=== PATIENT | female | born 1950 | race Caucasian/White ===

== ENCOUNTER 2020-01-12 08:13 | Emergency (ER) | payer BC, MEDICARE ==
[~2020-01-12] VITALS: Ht 170.2 cm; Wt 59.0 kg
[~2020-01-12 08:13] MED LIST: BENADRYL25 MG PO; BONIVA3 MG/3 ML IV; FLOVENT HFA12 G1 INH; PREMARIN0.625 MG PO; VENTOLIN HFA18 GM INH
--- OUTSIDE RECORDS SUMMARY | 2020-01-12 08:16 | XMS ---
PreManage Notification: BEATRICE DORAN Security Skate Hop Events No recent Security Events currently on file CRITERIA MET - [facility] - 2 Visits in 30 Days CARE PROVIDERS There are no care providers on record at this time. [facility] has no Care Guidelines for this patient. [facility] (12 MO.) [facility] T[facility] NOTE: Visits indicate total known visits. ED/C VISIT TRACKING (12 MO.) 01/12/2020 08:[address] [facility] [place] TYPE: Emergency COMPLAINT: - SOB, L SHOULDER PAIN ACROSS CHEST 01/11/2020 12:17 [facility] [place] TYPE: Emergency COMPLAINT: - SOB INPATIENT VISIT TRACKING (12 MO.) No inpatient visits to display in this time frame [email or web address]
--- NOTE | 2020-01-12 20:10 | EKG ---
[facility] [address] [facility] [place] [address] Signed Atrial fibrillation with rapid ventricular response Nonspecific ST and T wave abnormality Abnormal ECG When compared with ECG of 11-JAN-2020 14:29, Atrial fibrillation has replaced Sinus rhythm Vent. rate has increased BY [address] no longer elevated in Lateral leads Nonspecific T wave abnormality now evident in Lateral leads Confirmed by VIKA STEINER DO ([id number]) on 01/12/2020 8:10:28 PM Electronically Signed By: VIKA STEINER DO 01/12/202009 PATIENT NAME: BEATRICE DORAN Electrocardiogram DATE OF : 52 PHYSICIAN: IVKA STEINER DO REPORT #: [id number] REPORT IS CONFIDENTIAL AND NOT TO BE RELEASED WITHOUT AUTHORIZATION
--- NOTE | 2020-01-12 20:10 | EKG ---
[facility] [address] [place] [address] Signed Normal sinus rhythm Normal ECG When compared with ECG of 12-JAN-2020 08:26, (Unconfirmed) Sinus rhythm has replaced Atrial fibrillation Vent. rate has decreased BY 72 BPM Confirmed by VIKA STEINER DO ([id number]) on 01/12/2020 8:10:39 PM Electronically Signed By: VIKA STEINER DO 01/12/202009 PATIENT NAME: BEATRICE DORAN Electrocardiogram DATE OF : 52 PHYSICIAN: VIKA STEINER DO REPORT #: [id number] REPORT IS CONFIDENTIAL AND NOT TO BE RELEASED WITHOUT AUTHORIZATION
== END 2020-01-12 12:41 | disposition home or self-care (01) ==
LOC: ED 08:13
DX: I48.91 Unspecified atrial fibrillation (principal); J45.909 Unspecified asthma, uncomplicated; Z87.891 Personal history of nicotine dependence; Z88.0 Allergy status to penicillin; Z88.1 Allergy status to other antibiotic agents; Z88.2 Allergy status to sulfonamides; Z79.899 Other long term (current) drug therapy
CPT/HCPCS: 36415; 71045; 80048; 83735; 84439; 84443; 84484; 85025; 93005; 93010; 96361; 96374; 96375; 96376; 99285-25; J2270; J7030